=== PATIENT | male | born 1945 | race Caucasian/White ===

== ENCOUNTER 2018-04-18 12:58 | Emergency (ER) | payer MEDICARE ==
[~2018-04-18] VITALS: Ht 177.8 cm; Wt 92.1 kg
[2018-04-18 13:27] VITALS: BP 163/73
[2018-04-18] MEDS ORDERED: LIDOCAINE 2% 20 ML VIAL. IJ ONE (14:00)
[2018-04-18] MEDS ORDERED: DIPHTH,PERTUSS(ACELL),TET TOX 0.5 ML DISP.SYRIN. VAX IM ONE (14:00)
[2018-04-18] MEDS ORDERED: LIDOCAINE/EPI/TETRACAINE TOPICAL GEL 3 ML. TP ONE (14:30)
--- NOTE | 2018-04-18 15:36 | PHYS DOC ---
Past Medical History Past Medical History: Cancer, Hypertension, Other Additional Past Medical Histor: BARETS DX, THROAT CA, AMBLER Past Surgical History: Appendectomy, Other Additional Past Surgical Histo: RADICAL NECK DISSECTION, LYMPH NODE REMOVAL Alcohol Use: Occasionally Drug Use: None Adult General Chief Complaint Chief Complaint: LACERATION/AVULSION HPI HPI Patient is a 72 year old [f__sex] who presents with [] Review of Systems Review of Systems Constitutional: Denies fever or chills [] Eyes: Denies change in visual acuity, redness, or eye pain [] HENT: Denies nasal congestion or sore throat [] Respiratory: Denies cough or shortness of breath [] Cardiovascular: No additional information not addressed in HPI [] GI: Denies abdominal pain, nausea, vomiting, bloody stools or diarrhea [] : Denies dysuria or hematuria [] Musculoskeletal: Denies back pain or joint pain [] Integument: Denies rash or skin lesions [] Neurologic: Denies headache, focal weakness or sensory changes [] Endocrine: Denies polyuria or polydipsia [] All other systems were reviewed and found to be within normal limits, except as documented in this note. Current Medications Current Medications Current Medications Medications (Trade) Dose Ordered Sig/Linda Start Time Stop Time Status Last Admin Dose Admin Diphtheria/ Tetanus/Acell Pertussis (Boostrix) 0.5 ml ONCE ONCE 04/18/18 14:00 04/18/18 14:00 DC Lidocaine HCl 20 ml 1X ONCE 04/18/18 14:00 04/18/18 14:01 DC 04/18/18 13:34 20 ML Lidocaine/ Epinephrine (Let Topical) 3 ml 1X ONCE 04/18/18 14:30 04/18/18 14:31 DC 04/18/18 14:14 3 ML Allergies Allergies Allergies Coded Allergies Type Severity Reaction Last Updated Verified No Known Allergies Allergy Unknown 04/18/18 Yes Physical Exam Physical Exam Constitutional: Well developed, well nourished, no acute distress, non-toxic appearance. [] HENT: Normocephalic, atraumatic, bilateral external ears normal, oropharynx moist, no oral exudates, nose normal. [] Eyes: PERRLA, EOMI, conjunctiva normal, no discharge. [] Neck: Normal range of motion, no tenderness, supple, no stridor. [] Cardiovascular:Heart rate regular rhythm, no murmur [] Lungs & Thorax: Bilateral breath sounds clear to auscultation [] Abdomen: Bowel sounds normal, soft, no tenderness, no masses, no pulsatile masses. [] Skin: Warm, dry, no erythema, no rash. [] Back: No tenderness, no CVA tenderness. [] Extremities: No tenderness, no cyanosis, no clubbing, ROM intact, no edema. [] Neurologic: Alert and oriented X 3, normal motor function, normal sensory function, no focal deficits noted. [] Psychologic: Affect normal, judgement normal, mood normal. [] Current Patient Data Vital Signs Vital Signs Date Time Temp Pulse Resp B/P (MAP) Pulse Ox O2 Delivery O2 Flow Rate FiO2 04/18/18 13:27 98.6 57 16 163/73 (103) 98 Room Air 98.6 EKG EKG [] Radiology/Procedures Radiology/Procedures [] Course & Med Decision Making Course & Med Decision Making Pertinent Labs and Imaging studies reviewed. (See chart for details) [] Dragon Disclaimer Dragon Disclaimer This electronic medical record was generated, in whole or in part, using a voice recognition dictation system. Departure Departure Impression: Primary Impression: Laceration Disposition: 01 HOME, SELF-CARE Condition: STABLE Referrals: SURAJ AUGUSTIN (PCP) Patient Instructions: Laceration Care, Adult Additional Instructions: You may take ibuprofen or Tylenol for pain. Follow-up with your primary care provider in 7-10 days for suture removal. If worsening please return to the emergency department. ANNIE MACEDO APRN Apr 18, 2018 15:36
== END 2018-04-18 16:05 | disposition home or self-care (01) ==
LOC: ER 12:58
DX: S61.011A Laceration without foreign body of right thumb without damage to nail, initial encounter (principal); W26.0XXA Contact with knife, initial encounter; Y93.89 Activity, other specified; Y99.8 Other external cause status; Y92.89 Other specified places as the place of occurrence of the external cause
CPT/HCPCS: 96372; 99283; J2001; 12001